=== PATIENT | male | born 1995 ===

== ENCOUNTER 2017-09-22 00:08 | Emergency (ER) | payer BC ==
--- NOTE | 2017-09-22 00:48 | C.PDOC ---
History Of Present Illness 22 year old male with no significant PMHx presents to the ED c/o sharp like sudden onset substernal chest pain associated with palpitations that occured 1 hour [facility]. Patient reports episodes lasted up to 5 seconds at a time and will repeat themselves [id number] times within the hour. Patient denies SOB, position change, deep breathing, prior hx of similar symptoms, numbness, weakness, panic attack history, drug use only occasional marijuana use. Chief Complaint (Nursing): Chest Pain History Per: Patient History/Exam Limitations: no limitations Onset/Duration Of Symptoms: Days Current Symptoms Are (Timing): Still Present Quality: "Pain" Modifying Factors: None Exacerbating Factors: None Recent travel outside of the [place]: No Additional History Per: Patient Past Medical History Reviewed: Historical Data, Nursing Documentation, Vital Signs Vital Signs: Last Vital Signs Temp 97.9 F 09/22/17 01:45 Pulse 66 09/22/17 01:45 Resp 22 09/22/17 01:45 BP 114/58 L 09/22/17 01:45 Pulse Ox 97 09/22/17 01:45 - Medical History PMH: No Chronic Diseases Surgical History: No Surg Hx Family History: States: Unknown Family Hx - Social History Hx Alcohol Use: Yes Hx Substance Use: Yes - Immunization History Hx Tetanus Toxoid Vaccination: No Hx Influenza Vaccination: No Hx Pneumococcal Vaccination: No Review Of Systems Constitutional: Negative for: Fever, Chills Cardiovascular: Positive for: Chest Pain, Palpitations Respiratory: Negative for: Shortness of Breath Neurological: Negative for: Weakness, Numbness Physical Exam - Physical Exam Appears: Non-toxic, Other (anxious, tearful) Skin: Normal Color, Warm, Dry Head: Atraumatic, Normacephalic Eye(s): bilateral: Other (injected conjuctiva) Nose: No Discharge Oral Mucosa: Moist Neck: Normal ROM, Supple Chest: Symmetrical Cardiovascular: Rhythm Regular, No Murmur Respiratory: Normal Breath Sounds, No Rales, No Rhonchi, No Wheezing Gastrointestinal/Abdominal: Soft, No Tenderness, No Guarding, No Rebound Extremity: Normal ROM, No Tenderness, No Swelling Neurological/Psych: Oriented x3, Normal Speech Gait: Steady ED Course And Treatment - Laboratory Results Result Diagrams: 09/22/17 00:53 09/22/17 00:53 ECG: Interpreted By Me ECG Rhythm: Sinus Rhythm Interpretation Of ECG: LVH by voltage,otherwise neg Rate From EC O2 Sat by Pulse Oximetry: 100 (ON RA) Pulse Ox Interpretation: Normal Medical Decision Making Medical Decision Making: Impression: atypical chest pain, r/u anxiety disorder Plan: * Labs * Xanax Pt is pain free on repeat rval.pt has stopped crying,is calm Disposition - Disposition Referrals: [facility] [Outside] Disposition: HOME/ ROUTINE Disposition Time: 04:15 Condition: GOOD Prescriptions: ALPRAZolam [Xanax] 0.25 mg PO TID PRN #12 tab PRN Reason: Anxiety Instructions: Chest Pain That Is Not Caused by the Heart (DC), Anxiety, Adult ( DC) Forms: [employer] (Estonian) Print Language: [place] - Clinical Impression Clinical Impression: Chest discomfort, Anxiety - Scribe Statement The provider has reviewed the documentation as recorded by the Scribe Azael Gifford All medical record entries made by the Scribe were at my direction and personally dictated by me. I have reviewed the chart and agree that the record accurately reflects my personal performance of the history, physical exam, medical decision making, and the department course for this patient. I have also personally directed, reviewed, and agree with the discharge instructions and disposition.
[2017-09-22 00:56] LABS: BASO % 0.6 % (0.0-2.0); EOS # 0.2 K/uL (0.0-0.7); EOS % 2.7 % (0.0-4.0); HEMOGLOBIN 15.1 g/dL (12.0-18.0); LYMPH # 2.2 K/uL (1.0-4.3); LYMPH % 29.4 % (20.0-40.0); MEAN CELL VOLUME 87.1 fL (80.0-94.0); MEAN CORPUSCULAR HEMOGLOBIN 30.5 pg (27.0-31.0); MEAN PLATELET VOLUME 9.5 fL (7.2-11.7); MONO # 0.6 K/uL (0.0-0.8); MONO % 7.5 % (0.0-10.0); NEUT # 4.5 K/uL (1.8-7.0); NEUT % 59.8 % (50.0-75.0); NRBC % 0.1 % (0.0-2.0); RBC 4.94 Mil/uL (4.40-5.90); RED CELL DISTRIBUTION WIDTH 13.2 % (11.5-14.5); WHITE BLOOD COUNT 7.5 K/uL (4.8-10.8)
[2017-09-22 01:09] LABS: ALB/GLOB RATIO 1.6 (1.0-2.1); ALBUMIN 4.3 g/dL (3.5-5.0); ALT/SGPT 24 U/L (21-72); AST/SGOT 23 U/L (17-59); BLOOD UREA NITROGEN 10 mg/dL (9-20); CALCIUM 9.2 mg/dl (8.6-10.4); GFR AFRICAN-AMERICAN > 60; GFR NON-AFRICAN AMERICAN > 60
[2017-09-22 01:46] VITALS: BP 114/58; PULSE 66; RESP 22; TEMP 97.9
[2017-09-22 04:15] VITALS: O2SAT 100
--- NOTE | 2017-09-25 17:25 | CARD ---
APPROVED REPORT EKG Measurement Heart [id number] 132P-10 [id number] <Conclusion> Normal sinus rhythm Left ventricular hypertrophy with QRS widening Abnormal ECG
== END 2017-09-22 01:46 | disposition home or self-care (01) ==
LOC: C.ER 00:08
DX: F41.9 Anxiety disorder, unspecified (principal); R07.89 Other chest pain